=== PATIENT | female | born 2000 | race Caucasian/White ===

== ENCOUNTER 2021-01-11 23:43 | Emergency (ER) | payer BC, SELFPAY ==
--- NOTE | ~2021-01-11 | XR_ITS ---
EXAMINATION: XR ABDOMEN KUB CLINICAL INFORMATION: Constipation COMPARISON: 11/07/2010 TECHNIQUE: AP view of the abdomen. FINDINGS: The bowel gas pattern is nonobstructive. Moderate amount of stool is present in the pelvis. No suspicious calcifications are seen. No acute osseous findings identified. XR/XR KUB IMPRESSION: Moderate volume of stool in the pelvis. Nonobstructive bowel gas pattern.
[2021-01-12 00:10] VITALS: BMI 19.1
[2021-01-12 00:14] VITALS: BP 118/83; PULSE 83; RESP 17; TEMP 37.1; O2SAT 100; BMI 19.1
[2021-01-12 00:27] LABS: Basophils Percent Auto 0.6 % (0-2); Eosinophils Absolute Auto 0.2 X10*3/uL (0.0-0.4); Eosinophils Percent Auto 2.7 % (0-4); Hematocrit 33.4 % (37-47); Hemoglobin 10.8 g/dl (12.0-16.0); Imm Gran Abs Auto 0.01 X10*3/uL (0.00-0.03); Imm Gran Pct Auto 0.1 % (0.0-0.4); Lymphocytes Absolute Auto 2.5 X10*3/uL (1.2-4.9); Lymphocytes Percent Auto 35.4 % (20-40); MANUAL DIFF FLAG NO; Mean Corpuscular HGB Conc 32.3 g/dl (31.0-35.0); Mean Corpuscular Hemoglobin 26.3 pg (27.0-33.0); Mean Corpuscular Volume 81.3 fL (80-98); Mean Platelet Volume 9.7 fL (9.4-12.3); Monocytes Absolute Auto 0.5 X10*3/uL (0.1-1.2); Monocytes Percent Auto 7.4 % (2-11); Neutrophils Absolute Auto 3.8 X10*3/uL (2.0-8.3); Neutrophils Percent Auto 53.8 % (45-73); Platelet Count 378 X10*3/uL (160-400); Red Blood Count 4.11 X10*6/uL (4.20-5.50); Red Cell Distribution Width 14.8 % (11.0-16.0)
[2021-01-12 00:29] LABS: Appearance Urine CLEAR; Color Urine YELLOW; Glucose Urine UA NEG (NEG); Leukocyte Esterase Urine NEG (NEG); Nitrite Urine NEG (NEG); PH 5.5 (5.0-8.0); Specific Gravity - Urine >= 1.030 (1.005-1.025); Urine Blood NEG (NEG); Urine Ketones NEG (NEG); Urine Protein TRACE MG/DL (NEG-TRACE)
[2021-01-12 00:31] LABS: UPreg QC Valid YES; Urine Pregnancy NEGATIVE (NEGATIVE)
[2021-01-12 00:51] LABS: Anion Gap 11 (12-20); Blood Urea Nitrogen 18 mg/dL (9-16); Calcium 9.8 mg/dL (8.4-10.2); Carbon Dioxide 24 mmol/L (22-29); Chloride 108 mmol/L (96-108); Creatinine Clr Calc Pharmacy 88.9; Estimated Glomerular Filt Rate > 60; Glucose Random 93 mg/dL (60-115); Sodium 139 mmol/L (135-145)
--- NOTE | 2021-01-12 07:41 | ED_ITS ---
HPI - Abdominal Pain General Chief Complaint: Abdominal Pain Stated Complaint: Abd pain Source: patient Mode of arrival: ambulatory History of Present Illness HPI narrative: SEE DOWN TIME NOTE Related Data Allergies Allergy/AdvReac Type Severity Reaction Status Date / Time BIRCH TREE Allergy Unknown Uncoded 04/22/20 17:22 Physical Exam Vital Signs: Vital Signs: Last Vital Signs Temp 98.7 F 01/12/21 00:14 Pulse 83 01/12/21 00:14 Resp 17 01/12/21 00:14 BP 118/83 01/12/21 00:14 Pulse Ox 100 01/12/21 00:14 Body Mass Index 19.1 MDM - Abdominal Pain Lab Data Result diagrams: 01/12/21 00:19 01/12/21 00:19 Labs: Lab Results 01/12/21 01/12/21 01/12/21 Range/Units 00:19 00:19 00:19 WBC 7.0 (4.8-10.8) X10*3/uL RBC 4.11 L (4.20-5.50) X10*6/uL Hgb 10.8 L (12.0-16.0) g/dl Hct 33.4 L (37-47) % MCV 81.3 (80-98) fL MCH 26.3 L (27.0-33.0) pg MCHC 32.3 (31.0-35.0) g/dl RDW 14.8 (11.0-16.0) % Plt Count 378 (160-400) X10*3/uL MPV 9.7 (9.4-12.3) fL Immature Gran % (Auto) 0.1 (0.0-0.4) % Neut % (Auto) 53.8 (45-73) % Lymph % (Auto) 35.4 (20-40) % [place] % (Auto) 7.4 (2-11) % Eos % (Auto) 2.7 (0-4) % Baso % (Auto) 0.6 (0-2) % Lymph # (Auto) 2.5 (1.2-4.9) X10*3/uL [place] # (Auto) 0.5 (0.1-1.2) X10*3/uL Eos # (Auto) 0.2 (0.0-0.4) X10*3/uL Baso # (Auto) 0.0 (0.0-0.2) X10*3/uL Abs Immat Gran (auto) 0.01 (0.00-0.03) X10*3/uL Absolute Neuts (auto) 3.8 (2.0-8.3) X10*3/uL Absolute Nucleated RBC 0.000 (0.0-0.012) X10*3/uL Nucleated RBC % (auto) 0.0 (0.0-0.2) /100WBC Sodium 139 (135-145) mmol/L Potassium 4.0 (3.3-5.1) mmol/L Chloride 108 (96-108) mmol/L Carbon Dioxide 24 (22-29) mmol/L Anion Gap 11 L (12-20) BUN 18 H (9-16) mg/dL Creatinine 0.78 (0.5-1.4) mg/dL Estim Creat Clear Calc 88.9 Estimated GFR > 60 Random Glucose 93 (60-115) mg/dL Calcium 9.8 (8.4-10.2) mg/dL Urine Color YELLOW Urine Appearance CLEAR Urine pH 5.5 (5.0-8.0) Ur Specific [place] >= 1.030 H (1.005-1.025) Urine Protein TRACE (NEG-TRACE) MG/DL Urine Glucose (UA) NEG (NEG) MG/DL Urine Ketones NEG (NEG) MG/DL Urine Blood NEG (NEG) Urine Nitrite NEG (NEG) Ur Leukocyte Esterase NEG (NEG) Urine Test (NEGATIVE) 01/12/21 Range/Units 00:19 WBC (4.8-10.8) X10*3/uL RBC (4.20-5.50) X10*6/uL Hgb (12.0-16.0) g/dl Hct (37-47) % MCV (80-98) fL MCH (27.0-33.0) pg MCHC (31.0-35.0) g/dl RDW (11.0-16.0) % Plt Count (160-400) X10*3/uL MPV (9.4-12.3) fL Immature Gran % (Auto) (0.0-0.4) % Neut % (Auto) (45-73) % Lymph % (Auto) (20-40) % [place] % (Auto) (2-11) % Eos % (Auto) (0-4) % Baso % (Auto) (0-2) % Lymph # (Auto) (1.2-4.9) X10*3/uL [place] # (Auto) (0.1-1.2) X10*3/uL Eos # (Auto) (0.0-0.4) X10*3/uL Baso # (Auto) (0.0-0.2) X10*3/uL Abs Immat Gran (auto) (0.00-0.03) X10*3/uL Absolute Neuts (auto) (2.0-8.3) X10*3/uL Absolute Nucleated RBC (0.0-0.012) X10*3/uL Nucleated RBC % (auto) (0.0-0.2) /100WBC Sodium (135-145) mmol/L Potassium (3.3-5.1) mmol/L Chloride (96-108) mmol/L Carbon Dioxide (22-29) mmol/L Anion Gap (12-20) BUN (9-16) mg/dL Creatinine (0.5-1.4) mg/dL Estim Creat Clear Calc Estimated GFR Random Glucose (60-115) mg/dL Calcium (8.4-10.2) mg/dL Urine Color Urine Appearance Urine pH (5.0-8.0) Ur Specific [place] (1.005-1.025) Urine Protein (NEG-TRACE) MG/DL Urine Glucose (UA) (NEG) MG/DL Urine Ketones (NEG) MG/DL Urine Blood (NEG) Urine Nitrite (NEG) Ur Leukocyte Esterase (NEG) Urine Test NEGATIVE (NEGATIVE) Discharge Plan Discharge Clinical Impression: Constipation, Gastritis Patient Disposition: Home, Self-Care Interventions: ED Discharge Assessment Last Done: 01/12/21 06:58 Discharge Date/Time: 01/12/21 02:00 [facility] Past Medical History Medical History (Updated 01/12/21 @ 06:58 by Destiny Moss) No known health problems Social History Social History Advance Directives: No Patient : No
== END 2021-01-12 02:00 | disposition home or self-care (01) ==
PROVIDERS: Emergency Provider Student in an Organized Health Care Education/Training Program; PCP Specialist
DX: K29.70 Gastritis, unspecified, without bleeding (principal); K59.00 Constipation, unspecified
CPT/HCPCS: 36415; 74018; 80048; 81003; 81025; 85025; 99283

== ENCOUNTER 2021-05-11 12:33 | Outpatient (REF) | payer BC, SELFPAY | END 2021-05-11 12:34 | disposition home or self-care (01) | LOC: HO.LAB 12:33 | PROVIDERS: PCP Pediatrics; Visit Provider Internal Medicine | DX: Z20.822 Contact with and (suspected) exposure to COVID-19 (principal) | CPT/HCPCS: C9803; U0003; U0005 ==

== ENCOUNTER 2021-05-17 11:17 | Outpatient (REF) | payer BC, SELFPAY | END 2021-05-17 11:18 | disposition home or self-care (01) | LOC: HO.LAB 11:17 | PROVIDERS: PCP Pediatrics; Visit Provider Internal Medicine | DX: Z20.822 Contact with and (suspected) exposure to COVID-19 (principal) | CPT/HCPCS: C9803; U0003; U0005 ==

== ENCOUNTER 2022-03-24 02:30 | Emergency (ER) | payer BC, SELFPAY ==
[2022-03-24] VITALS (7 sets, daily range): BP systolic 93–112; BP diastolic 47–67; PULSE 76–148; RESP 16–20; TEMP 36.7; O2SAT 99–100; BMI 18.8
--- NOTE | 2022-03-24 02:53 | ED.GENADULT ---
HPI - General Adult General Chief complaint: General Medical Stated complaint: at home Time Seen by Provider: 03/24/22 02:53 Source: patient Mode of arrival: ambulatory Limitations: no limitations History of Present Illness HPI narrative: Patient primi 6 weeks status post MTP [facility] 16:00 comes here because she is bleeding and passed about lemon size 3 clots. Feels weak and dizzy Related Data Allergies Allergy/AdvReac Type Severity Reaction Status Date / Time BIRCH TREE Allergy Unknown Uncoded 04/22/20 17:22 Review of Systems Review of Systems: Yes all other systems are reviewed and are negative [facility] Past Medical History Medical History No known health problems Social History Social History Advance Directives: No Physical Exam ED Vital Signs: Vital Signs - 24 hr 03/24/22 02:34 03/24/22 03:21 03/24/22 03:24 Temperature 98.0 F Pulse Rate 99 85 121 H Respiratory Rate 16 Blood Pressure 100/47 L 100/60 93/59 L Pulse Oximetry 99 Oxygen Delivery Method Room Air 03/24/22 03:26 Temperature Pulse Rate 148 H Respiratory Rate Blood Pressure 112/67 Pulse Oximetry Oxygen Delivery Method BMI result Body Mass Index 18.8 Appearance: Alert. Oriented X3. No acute distress. ENT: Pharynx normal. Oral Mucosa moist Neck: Normal inspection. Neck supple. CVS: Normal heart rate and rhythm. Pulses normal. Lungs: Clear to auscultation bilaterally Abd; soft mild suprapubic tenderness no mass palpable Skin: Skin warm and dry. Normal skin color. Normal skin turgor. Neuro: Oriented X 3. Medical Decision Making MDM Narrative Medical decision making narrative: Patient 6 weeks status post MTP using misoprostol comes here for bleeding which is expected there is no indication for ultrasound at this time as the pill was given dose today and bleeding supposed to continue for 2-3 days patient H and H is stable with normal orthostatics patient advised to follow with polymer materials consultant, patient been feeling very dizzy on standing with orthostatics positive will give 1 L of saline bolus Lab Data Lab results reviewed: Yes I reviewed the patient's lab results. Result diagrams: 03/24/22 03:04 03/24/22 03:04 Labs: Lab Results 03/24/22 03/24/22 Range/Units 03:04 03:04 WBC 9.7 (4.8-10.8) X10*3/uL RBC 3.93 L (4.20-5.50) X10*6/uL Hgb 9.9 L (12.0-16.0) g/dl Hct 30.7 L (37.0-47.0) % MCV 78.1 L (80.0-98.0) fL MCH 25.2 L (27.0-33.0) pg MCHC 32.2 (31.0-35.0) g/dl RDW 15.4 (11.0-16.0) % Plt Count 322 (160-400) X10*3/uL MPV 10.5 (9.4-12.3) fL Immature Gran % (Auto) 0.4 (0.0-0.4) % Neut % (Auto) 73.1 H (45-73) % Lymph % (Auto) 18.6 L (20-40) % [place] % (Auto) 6.3 (2-11) % Eos % (Auto) 1.1 (0-4) % Baso % (Auto) 0.5 (0-2) % Lymph # (Auto) 1.8 (1.2-4.9) X10*3/uL [place] # (Auto) 0.6 (0.1-1.2) X10*3/uL Eos # (Auto) 0.1 (0.0-0.4) X10*3/uL Baso # (Auto) 0.1 (0.0-0.2) X10*3/uL Abs Immat Gran (auto) 0.04 H (0.00-0.03) X10*3/uL Absolute Neuts (auto) 7.1 (2.0-8.3) x10*3/uL Absolute Nucleated RBC 0.000 (0.0-0.012) X10*3/uL Nucleated RBC % (auto) 0.0 (0.0-0.2) /100WBC Sodium 137 (135-145) mmol/L Potassium 4.2 (3.3-5.1) mmol/L Chloride 105 (96-108) mmol/L Carbon Dioxide 20 L (22-29) mmol/L Anion Gap 16 (12-20) BUN 19 H (9-16) mg/dL Creatinine 0.87 (0.5-1.4) mg/dL Estim Creat Clear Calc 80.5 Estimated GFR > 60 Random Glucose 108 (60-115) mg/dL Calcium 9.1 D (8.4-10.2) mg/dL Total Bilirubin 0.3 (0.0-1.0) mg/dL AST 14 (5-31) U/L ALT 6 (0-31) U/L Alkaline Phosphatase 42 (39-117) U/L Total Protein 6.8 (6.5-8.0) g/dL Albumin 3.9 (3.5-5.0) g/dL Discharge Plan Discharge Clinical Impression: Patient Disposition: Home, Self-Care Instructions: Miscarriage (ED)
[2022-03-24 03:08] LABS: MANUAL DIFF FLAG NO
[2022-03-24 03:12] LABS: Basophils Absolute Auto 0.1 X10*3/uL (0.0-0.2); Basophils Percent Auto 0.5 % (0-2); Eosinophils Absolute Auto 0.1 X10*3/uL (0.0-0.4); Eosinophils Percent Auto 1.1 % (0-4); Hematocrit 30.7 % (37.0-47.0); Hemoglobin 9.9 g/dl (12.0-16.0); Imm Gran Abs Auto 0.04 X10*3/uL (0.00-0.03); Imm Gran Pct Auto 0.4 % (0.0-0.4); Lymphocytes Absolute Auto 1.8 X10*3/uL (1.2-4.9); Lymphocytes Percent Auto 18.6 % (20-40); Mean Corpuscular HGB Conc 32.2 g/dl (31.0-35.0); Mean Corpuscular Hemoglobin 25.2 pg (27.0-33.0); Mean Corpuscular Volume 78.1 fL (80.0-98.0); Mean Platelet Volume 10.5 fL (9.4-12.3); Monocytes Absolute Auto 0.6 X10*3/uL (0.1-1.2); Monocytes Percent Auto 6.3 % (2-11); Neutrophils Absolute Auto 7.1 x10*3/uL (2.0-8.3); Neutrophils Percent Auto 73.1 % (45-73); Platelet Count 322 X10*3/uL (160-400); Red Blood Count 3.93 X10*6/uL (4.20-5.50); Red Cell Distribution Width 15.4 % (11.0-16.0); White Blood Count 9.7 X10*3/uL (4.8-10.8)
[2022-03-24 03:25] LABS: Alanine Aminotransferase 6 U/L (0-31); Albumin Level 3.9 g/dL (3.5-5.0); Alkaline Phosphatase 42 U/L (39-117); Anion Gap 16 (12-20); Aspartate Amino Transferase 14 U/L (5-31); Bilirubin Total 0.3 mg/dL (0.0-1.0); Blood Urea Nitrogen 19 mg/dL (9-16); Calcium 9.1 mg/dL (8.4-10.2); Carbon Dioxide 20 mmol/L (22-29); Chloride 105 mmol/L (96-108); Creatinine Clr Calc Pharmacy 80.5; Estimated Glomerular Filt Rate > 60; Glucose Random 108 mg/dL (60-115); Potassium 4.2 mmol/L (3.3-5.1); Sodium 137 mmol/L (135-145); Total Protein 6.8 g/dL (6.5-8.0)
[2022-03-24] MEDS: 0.9 % Sodium Chloride 1,000 ML 999 ML IV (03:40)
--- NOTE | 2022-03-24 05:42 | ED_ITS ---
HPI - General Adult General Chief complaint: General Medical Stated complaint: at home Time Seen by Provider: 03/24/22 02:53 Source: patient Mode of arrival: ambulatory Limitations: no limitations Related Data Allergies Allergy/AdvReac Type Severity Reaction Status Date / Time BIRCH TREE Allergy Unknown Uncoded 04/22/20 17:22 [facility] Past Medical History Medical History No known health problems Social History Social History Advance Directives: No Physical Exam ED Vital Signs: Vital Signs - 24 hr 03/24/22 02:34 03/24/22 03:21 03/24/22 03:24 Temperature 98.0 F Pulse Rate 99 85 121 H Respiratory Rate 16 Blood Pressure 100/47 L 100/60 93/59 L Pulse Oximetry 99 Oxygen Delivery Method Room Air 03/24/22 03:26 03/24/22 04:20 03/24/22 05:33 Temperature Pulse Rate 148 H 76 82 Respiratory Rate 20 Blood Pressure 112/67 98/59 L 101/57 L Pulse Oximetry 100 Oxygen Delivery Method Room Air 03/24/22 05:34 03/24/22 05:34 Temperature Pulse Rate 90 107 H Respiratory Rate Blood Pressure 105/58 L 112/62 Pulse Oximetry Oxygen Delivery Method BMI result Body Mass Index 18.8 Medical Decision Making Lab Data Result diagrams: 03/24/22 03:04 03/24/22 03:04 Labs: Lab Results 03/24/22 03/24/22 Range/Units 03:04 03:04 WBC 9.7 (4.8-10.8) X10*3/uL RBC 3.93 L (4.20-5.50) X10*6/uL Hgb 9.9 L (12.0-16.0) g/dl Hct 30.7 L (37.0-47.0) % MCV 78.1 L (80.0-98.0) fL MCH 25.2 L (27.0-33.0) pg MCHC 32.2 (31.0-35.0) g/dl RDW 15.4 (11.0-16.0) % Plt Count 322 (160-400) X10*3/uL MPV 10.5 (9.4-12.3) fL Immature Gran % (Auto) 0.4 (0.0-0.4) % Neut % (Auto) 73.1 H (45-73) % Lymph % (Auto) 18.6 L (20-40) % [place] % (Auto) 6.3 (2-11) % Eos % (Auto) 1.1 (0-4) % Baso % (Auto) 0.5 (0-2) % Lymph # (Auto) 1.8 (1.2-4.9) X10*3/uL [place] # (Auto) 0.6 (0.1-1.2) X10*3/uL Eos # (Auto) 0.1 (0.0-0.4) X10*3/uL Baso # (Auto) 0.1 (0.0-0.2) X10*3/uL Abs Immat Gran (auto) 0.04 H (0.00-0.03) X10*3/uL Absolute Neuts (auto) 7.1 (2.0-8.3) x10*3/uL Absolute Nucleated RBC 0.000 (0.0-0.012) X10*3/uL Nucleated RBC % (auto) 0.0 (0.0-0.2) /100WBC Sodium 137 (135-145) mmol/L Potassium 4.2 (3.3-5.1) mmol/L Chloride 105 (96-108) mmol/L Carbon Dioxide 20 L (22-29) mmol/L Anion Gap 16 (12-20) BUN 19 H (9-16) mg/dL Creatinine 0.87 (0.5-1.4) mg/dL Estim Creat Clear Calc 80.5 Estimated GFR > 60 Random Glucose 108 (60-115) mg/dL Calcium 9.1 D (8.4-10.2) mg/dL Total Bilirubin 0.3 (0.0-1.0) mg/dL AST 14 (5-31) U/L ALT 6 (0-31) U/L Alkaline Phosphatase 42 (39-117) U/L Total Protein 6.8 (6.5-8.0) g/dL Albumin 3.9 (3.5-5.0) g/dL Discharge Plan Discharge Clinical Impression: Patient Disposition: Home, Self-Care Instructions: Miscarriage (ED) Additional Instructions: Drink plenty of fluids it is expected you will continue to bleed for next 2 3 days 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
== END 2022-03-24 06:00 | disposition home or self-care (01) ==
PROVIDERS: Emergency Provider Internal Medicine; PCP Specialist
DX: O03.4 Incomplete spontaneous abortion without complication (principal); R42 Dizziness and giddiness; Z79.899 Other long term (current) drug therapy
CPT/HCPCS: 36415; 80053; 85025; 99283

== ENCOUNTER 2022-05-16 13:05 | Day surgery (SDC) | payer BC, SELFPAY ==
[2022-05-16] VITALS (8 sets, daily range): BP systolic 97–148; BP diastolic 56–98; PULSE 69–94; RESP 14–19; TEMP 36.5–36.9; O2SAT 100; BMI 18.8
--- NOTE | ~2022-05-16 | US_ITS ---
EXAMINATION:US OB transvaginal CLINICAL INFORMATION: Reason for Exam vaginal bleeding 2 months post COMPARISON: No priors available. LMP: Not reported. FINDINGS: UTERUS: The uterus is anteverted. Size: 5.6 x 3.5 x 4.1 cm. Uterine mass: There is no uterine mass. Cervix: Grossly unremarkable. Endometrium: Thickened heterogeneous endometrium, hypervascular, measuring up to 1.1 cm concerning for possible endometrial pathology or retained products. ADNEXA: Normal Right ovary: Normal in size. Left ovary: Normal in size. Doppler exam: Normal Doppler flow identified in both ovaries. FREE FLUID: Trace amount of free fluid. OTHER FINDINGS: None US/US OB transvaginal IMPRESSION: Abnormally thickened heterogeneous hypervascular endometrium measuring up to 1.1 cm, this is concerning for possible endometrial or subendometrial lesion versus retained products. Attention to follow-up tissue sampling and/or advanced imaging such as contrast-enhanced pelvic MRI would be recommended, if not performed follow-up ultrasound in 6 weeks is advised.
--- NOTE | ~2022-05-16 | US_ITS ---
Indication: Incomplete EXAMINATION: Pelvic ultrasound. Transvaginal exam and transabdominal. Findings; 2 sets of images are submitted. One set is dated 05/16/2022 at 3:48 PM on another is dated 05/16/2022 at 4:43 PM. The earlier images submitted demonstrate uterine structure to measure 5.6 x 3.5 x 4.1 cm. The endometrial canal is widened by structure measuring approximately 1 x 1.9 cm. This may be a polyp versus other etiology. It is vascular. The right ovary is measuring 2.6 x 2.1 x 2.2 cm. Volume 9 mL. Follicles are noted. The left ovary is measuring 2.6 x 1.9 x 3.4 cm.. Volume 9 mL. Follicles are noted Bilateral ovarian vascularity within normal limits The second set of images submitted demonstrates a surgical instrument in the region of the endometrial canal. The last image submitted demonstrates the canal measuring approximately 8 mm near the fundus. Ovarian vascularity is within normal limits. US/US OB limited IMPRESSION: Findings are described above. 2 series of images are submitted. One demonstrating a filling defect involving the endometrial canal and another demonstrating a surgical instrument on several images in the region of the endometrial canal. Please correlate with the surgeon's report.
--- NOTE | ~2022-05-16 | XR_ITS ---
EXAMINATION: XR CHEST CLINICAL INFORMATION: Syncope COMPARISON: None TECHNIQUE: 2 views of the chest were obtained. FINDINGS: No focal consolidation. Slight elevation the right hemidiaphragm, nonspecific. No pneumothorax. Trachea is midline. Cardiac mediastinal silhouette is not enlarged. No large pleural effusion. Osseous structures are intact. Soft tissues are unremarkable. XR/XR chest 2V IMPRESSION: No acute cardiopulmonary process.
--- NOTE | 2022-05-16 13:59 | ED.GENADULT ---
HPI - General Adult General Chief complaint: Syncope Stated complaint: NEAR SYNCOPE Time Seen by Provider: 05/16/22 13:59 Source: patient Mode of arrival: ambulatory Limitations: no limitations History of Present Illness HPI narrative: Patient is a 21 year old assigned female with a history of an in March of 2022 presenting to the emergency department today after almost passing out at work. Patient states that today at work, she almost passed out. Patient states that over the last few days she has noticed much more vagina bleeding than usual. Patient states that she had an in March of this year and had some minimal bleeding after that but it had largely stopped then restarted over the last few days. Patient denies any dizziness, lightheadedness, abdominal pain, nausea, vomiting, fever, chills, blurry vision, double vision, loss of vision, chest pain, difficulty breathing, shortness of breath, back pain, night sweats, pain with urination, increased urinary frequency, increased urinary urgency, syncope or a near syncopal episode, recent trauma or falls, bowel incontinence, bladder incontinence, bowel retention, bladder retention, or any other complaints at this time. Onset (ago): day(s) Severity: mild Severity scale (1-10): 4 Relieving factors: none Exacerbating factors: none Associated symptoms: denies other symptoms Treatments prior to arrival: none Related Data Allergies Allergy/AdvReac Type Severity Reaction Status Date / Time BIRCH TREE Allergy Unknown Uncoded 04/22/20 17:22 Review of Systems Constitutional: Constitutional: Reports no additional constitutional complaints, Denies chills, Denies fever(s) and Denies night sweats Eyes: Eyes: Reports no additional eye complaints, Denies blurry vision, Denies change in vision, Denies diplopia, Denies eye discharge, Denies loss of vision and Denies eye pain ENT: Reports dizziness Cardiovascular: Cardiovascular: Reports no additional cardiovascular complaints, Denies chest pain, Denies lightheadedness, Denies Loss of Consciousness and Denies dyspnea Respiratory: Respiratory: Reports no additional respiratory complaints and Denies dyspnea Gastrointestinal: Gastrointestinal: Reports no additional gastrointestinal complaints, Denies abdominal pain, Denies melena, Denies hematochezia, Denies change in bowel habits and Denies change in stool character Genitourinary: Genitourinary: Denies urinary frequency, Denies dysuria, Denies urinary incontinence, Denies urinary hesitancy and Denies urinary urgency Comments: vaginal bleeding Musculoskeletal: Musculoskeletal: Reports no additional musculoskeletal complaints, Denies numbness and Denies tingling Neurologic: Reports dizziness, Denies loss of vision, Denies numbness and Denies tingling Psychiatric: Psychiatric: Reports no additional psychiatric complaints Endocrine: Endocrine: Reports no additional endocrine complaints Hematologic/Lymphatic: Hematologic/Lymphatic: Reports no additional hematologic/lymphatic complaints Allergic/Immunologic: Allergic/Immunologic: Reports no additional allergic/immunologic complaints [facility] Past Medical History Attestation statement: The following information was validated with the patient. Source: old records reviewed Medical History No known health problems Social History Social History Advance Directives: No Advance Directives Information Provided: No Physical Exam ED Vital Signs: Vital Signs - 24 hr 05/16/22 13:17 05/16/22 13:26 Temperature 98.4 F 98.3 F Pulse Rate 81 79 Respiratory Rate 14 14 Blood Pressure 97/59 L 105/60 Pulse Oximetry 100 100 Oxygen Delivery Method Room Air Room Air BMI result Body Mass Index 18.8 Const General: cooperative, no acute distress, alert and awake Nutritional Appearance: well nourished Orientation/consciousness: patient oriented x3 Limitations: no limitations HENMT Head: Yes normal to inspection and Yes atraumatic Ears: hearing grossly normal bilaterally and external ears normal General nose exam: Normal external nose present, no nasal discharge noted and no epistaxis Face and sinus: Yes normal facial exam, No abrasion and No laceration Mouth: Normal oral and palatal mucosa present, no drooling and no muffled voice Eyes General: appearance normal, both eyes and all related structures Periorbital: periorbital findings normal Eyelids: Yes eyelids normal Conjunctivae: conjunctivae normal Pupils: Equal, round and reactive pupils present EOM: EOMs intact bilaterally Neck Neck: Yes normal visual inspection, Yes full ROM and Yes no lymphadenopathy Chest Chest palpation & inspection: normal inspection of the chest Resp Effort & Inspection: normal respiratory effort and able to speak in complete sentences Auscultation: clear to auscultation bilaterally Cardio Rate: regular rate Rhythm: regular rhythm GI Inspection: Yes normal to inspection Other: deferred by me - performed by Dr. Mayo Neuro General: patient oriented x3 and moves all extremities Cranial nerves: Yes Equal, round and reactive pupils present Cognition (Neuro): normal cognition Motor exam (neuro): 5/5 motor strength present throughout Sensory Exam: Normal double simultaneous stimulation for sensation Coordination: [id number] test normal Extrem General: Yes normal to inspection, Yes full ROM and Yes capillary refill normal Psych Appearance: grossly normal Mental Status: mental status grossly normal Affect: normal affect Attitude: cooperative Thought process: Normal thought process present Thought content: Normal thought content present Insight: Good insight present (Psych) Medical Decision Making MDM Narrative Medical decision making narrative: Patient is a 21 year old assigned female with presenting to the emergency department today with vaginal bleeding. Patient's physical exam was unremarkable. Patient's blood work showed a profound anemia of 5.4 with a HCT of 18.1. I initiated transufion protocol. Patient's EKG was unremarkable. Patient's transvaginal US is pending. Dr. Mayo, the OB environmental marketing representative, came and examined the patient and determined the patient should go to the OR for retained products of conception. I explained my physical exam findings as well as all test results to the patient and the patient's mother. I answered all questions asked by the patient and the patient's mother. Patient and the patient's mother verbalized agreement and understanding with this treatment plan and transfer to the OR. Medical Records Medical records reviewed: Yes I reviewed the patient's medical records. Lab Data Lab results reviewed: Yes I reviewed the patient's lab results. Result diagrams: 05/16/22 14:51 05/16/22 14:51 Labs: Lab Results 05/16/22 05/16/22 05/16/22 Range/Units 14:51 14:51 14:51 WBC 8.0 (4.8-10.8) X10*3/uL RBC 2.57 L D (4.20-5.50) X10*6/uL Hgb 5.4 L* D (12.0-16.0) g/dl Hct 18.1 L* D (37.0-47.0) % MCV 70.4 L (80.0-98.0) fL MCH 21.0 L (27.0-33.0) pg MCHC 29.8 L (31.0-35.0) g/dl RDW 17.8 H (11.0-16.0) % Plt Count 387 (160-400) X10*3/uL MPV 11.0 (9.4-12.3) fL Immature Gran % (Auto) 0.4 (0.0-0.4) % Neut % (Auto) 83.5 H (45-73) % Lymph % (Auto) 11.4 L (20-40) % [place] % (Auto) 3.6 (2-11) % Eos % (Auto) 0.6 (0-4) % Baso % (Auto) 0.5 (0-2) % Lymph # (Auto) 0.9 L (1.2-4.9) X10*3/uL [place] # (Auto) 0.3 (0.1-1.2) X10*3/uL Eos # (Auto) 0.1 (0.0-0.4) X10*3/uL Baso # (Auto) 0.0 (0.0-0.2) X10*3/uL Abs Immat Gran (auto) 0.03 (0.00-0.03) X10*3/uL Absolute Neuts (auto) 6.6 (2.0-8.3) x10*3/uL Absolute Nucleated RBC 0.000 (0.0-0.012) X10*3/uL Nucleated RBC % (auto) 0.0 (0.0-0.2) /100WBC Sodium 139 (135-145) mmol/L Potassium 4.4 (3.3-5.1) mmol/L Chloride 108 (96-108) mmol/L Carbon Dioxide 22 (22-29) mmol/L Anion Gap 13 (12-20) BUN 13 (9-16) mg/dL Creatinine 0.68 (0.5-1.4) mg/dL Estim Creat Clear Calc 103.0 Estimated GFR > 60 Random Glucose 92 (60-115) mg/dL Calcium 8.8 (8.4-10.2) mg/dL Magnesium 1.9 (1.6-2.6) mg/dL Total Bilirubin 0.2 (0.0-1.0) mg/dL AST 15 (5-31) U/L ALT 6 (0-31) U/L Alkaline Phosphatase 42 (39-117) U/L Troponin I High Sens < 3.5 (<3.5-17.0) ng/L Total Protein 6.7 (6.5-8.0) g/dL Albumin 4.0 (3.5-5.0) g/dL Beta HCG, Quant 6 mIU/mL Blood Type Antibody Screen Crossmatch 05/16/22 Range/Units 15:36 WBC (4.8-10.8) X10*3/uL RBC (4.20-5.50) X10*6/uL Hgb (12.0-16.0) g/dl Hct (37.0-47.0) % MCV (80.0-98.0) fL MCH (27.0-33.0) pg MCHC (31.0-35.0) g/dl RDW (11.0-16.0) % Plt Count (160-400) X10*3/uL MPV (9.4-12.3) fL Immature Gran % (Auto) (0.0-0.4) % Neut % (Auto) (45-73) % Lymph % (Auto) (20-40) % [place] % (Auto) (2-11) % Eos % (Auto) (0-4) % Baso % (Auto) (0-2) % Lymph # (Auto) (1.2-4.9) X10*3/uL [place] # (Auto) (0.1-1.2) X10*3/uL Eos # (Auto) (0.0-0.4) X10*3/uL Baso # (Auto) (0.0-0.2) X10*3/uL Abs Immat Gran (auto) (0.00-0.03) X10*3/uL Absolute Neuts (auto) (2.0-8.3) x10*3/uL Absolute Nucleated RBC (0.0-0.012) X10*3/uL Nucleated RBC % (auto) (0.0-0.2) /100WBC Sodium (135-145) mmol/L Potassium (3.3-5.1) mmol/L Chloride (96-108) mmol/L Carbon Dioxide (22-29) mmol/L Anion Gap (12-20) BUN (9-16) mg/dL Creatinine (0.5-1.4) mg/dL Estim Creat Clear Calc Estimated GFR Random Glucose (60-115) mg/dL Calcium (8.4-10.2) mg/dL Magnesium (1.6-2.6) mg/dL Total Bilirubin (0.0-1.0) mg/dL AST (5-31) U/L ALT (0-31) U/L Alkaline Phosphatase (39-117) U/L Troponin I High Sens (<3.5-17.0) ng/L Total Protein (6.5-8.0) g/dL Albumin (3.5-5.0) g/dL Beta HCG, Quant mIU/mL Blood Type A Positive Antibody Screen NEGATIVE Crossmatch See Detail Critical Care Time Critical Care Time Critical Care Time: Yes Total Critical Care Time: 30 Attestation: I spent 30 minutes of Critical Care Time with this patient. This does not include time spent on separately reported billable procedures. Discharge Plan Discharge Clinical Impression: Retained products of conception following , Anemia Patient Disposition: Xfer Other Transfer Details: To OR Print Language: Thai
--- NOTE | 2022-05-16 14:00 | ECG_ITS ---
Test Reason : syncope Blood Pressure : / mmHG Vent. Rate : 079 BPM Atrial Rate : 079 BPM P-R Int : 154 ms QRS Dur : 086 ms QT Int : 394 ms P-R-T Axes : 062 077 066 degrees QTc Int : 451 ms Normal sinus rhythm Normal ECG No previous ECGs available Referred By: Monserrat Abraham Electronically Signed By:ANDRÉS LITTLE MD
[2022-05-16] MEDS: 0.9 % Sodium Chloride 1,000 ML 999 ML IV (14:49)
[2022-05-16 14:55] LABS: MANUAL DIFF FLAG NO
[2022-05-16 14:59] LABS: Basophils Percent Auto 0.5 % (0-2); Eosinophils Absolute Auto 0.1 X10*3/uL (0.0-0.4); Eosinophils Percent Auto 0.6 % (0-4); Imm Gran Abs Auto 0.03 X10*3/uL (0.00-0.03); Imm Gran Pct Auto 0.4 % (0.0-0.4); Lymphocytes Absolute Auto 0.9 X10*3/uL (1.2-4.9); Lymphocytes Percent Auto 11.4 % (20-40); Mean Corpuscular HGB Conc 29.8 g/dl (31.0-35.0); Mean Corpuscular Volume 70.4 fL (80.0-98.0); Monocytes Absolute Auto 0.3 X10*3/uL (0.1-1.2); Monocytes Percent Auto 3.6 % (2-11); Neutrophils Absolute Auto 6.6 x10*3/uL (2.0-8.3); Neutrophils Percent Auto 83.5 % (45-73); Platelet Count 387 X10*3/uL (160-400); Red Blood Count 2.57 X10*6/uL (4.20-5.50); Red Cell Distribution Width 17.8 % (11.0-16.0)
[2022-05-16 15:03] LABS: Hematocrit 18.1 % (37.0-47.0); Hemoglobin 5.4 g/dl (12.0-16.0)
[2022-05-16 15:18] LABS: Troponin-I High Sensitivity < 3.5 ng/L (<3.5-17.0)
[2022-05-16 15:19] LABS: Alanine Aminotransferase 6 U/L (0-31); Alkaline Phosphatase 42 U/L (39-117); Anion Gap 13 (12-20); Aspartate Amino Transferase 15 U/L (5-31); Bilirubin Total 0.2 mg/dL (0.0-1.0); Blood Urea Nitrogen 13 mg/dL (9-16); Calcium 8.8 mg/dL (8.4-10.2); Carbon Dioxide 22 mmol/L (22-29); Chloride 108 mmol/L (96-108); Estimated Glomerular Filt Rate > 60; Glucose Random 92 mg/dL (60-115); Magnesium 1.9 mg/dL (1.6-2.6); Potassium 4.4 mmol/L (3.3-5.1); Sodium 139 mmol/L (135-145); Total Protein 6.7 g/dL (6.5-8.0)
[2022-05-16 15:25] LABS: HCG Quantitative 6 mIU/mL
--- NOTE | 2022-05-16 16:02 | PM.GYNCN ---
INFORMATION ASSOC - CN: HPI Data of Consult Consult date: 05/16/22 Primary Care Provider: None Physician Consult Narrative Narrative: I was consulted on Je Harris is a 21 year old female with a history of medical in [facility] presenting to [facility] emergency department today after almost passing out at work. The patient has been having heavy vaginal bleeding over the last 2 months , it started right within hours of medical , this was followed by a period of light vaginal bleeding for few days, the patient had [facility] where [facility] and was told everything was normal , since then the patient been having daily heavy vaginal bleeding associated with passage of blood clots and pelvic cramping, no fever or chills, no other complaints. In the emergency room H&H was 5.4/18.1, hCG 6. 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 - Review of Systems Review of Systems ROS Unobtainable: All systems reviewed & are unremarkable except as noted in HPI and below Cardiovascular: Denies Palpatations, Loss of consciousness or Chest pain Respiratory: Denies Cough, Wheezing or Shortness of breath Musculoskeletal: Denies Low back pain Gastrointestinal: Denies Heartburn, Constipation, Diarrhea, Nausea or Vomiting Genitourinary: Denies Pain with urination, Burning with urination or Urinary frequency Neurological: Denies Migranes Psychological: Denies Depression OB PMFSH Past Medical History Medical History No known health problems Social History Social History Advance Directives: No Advance Directives Information Provided: No Meds Allergies Allergy/AdvReac Type Severity Reaction Status Date / Time BIRCH TREE Allergy Unknown Uncoded 04/22/20 17:22 INFORMATION ASSOC Physical Exam Vitals Vital signs: Temp Pulse Resp BP Pulse Ox O2 Del Method 98.3 F 79 14 105/60 100 05/16/22 13:26 05/16/22 13:26 05/16/22 13:26 05/16/22 13:26 05/16/22 13:26 05/16/22 13:26 BMI result Body Mass Index 18.8 Constitutional General Appearance: Healthy appearing, Well-nourished and Well-developed Psychiatric Mood and Affect: active and alert, normal mood and normal affect Skin Appearance: No rashes and No lesions Lungs Respiratory Effort: No intercostal retractions Auscultation: Clear to auscultation Cardiovascular Auscultation: RRR Abdomen Auscultation/Inspection/Palpation: Normal bowel sounds, Soft, Non-distended and No tenderness Female Genitalia (Pelvic) Exam: Deferred Bladder/Urethra: Normal meatus Vulva: No lesions Vagina: Nontender Cervix: Grossly normal Uterus: Normal size Adnexa/Parametria: Adnexal Tenderness: None, Adnexal Mass: None, Parametrial Tenderness: None and Parametrial Mass: None Additional Comments: Large blood clots per vagina an active vaginal bleeding INFORMATION ASSOC - Results Labs CBC & Chem 7: 05/16/22 14:51 05/16/22 14:51 Labs: Short CBC 05/16/22 Range/Units 14:51 WBC 8.0 (4.8-10.8) X10*3/uL Hgb 5.4 L* D (12.0-16.0) g/dl Hct 18.1 L* D (37.0-47.0) % Plt Count 387 (160-400) X10*3/uL BMP 05/16/22 14:51 Sodium 139 Potassium 4.4 Chloride 108 Carbon Dioxide 22 BUN 13 Creatinine 0.68 Calcium 8.8 Liver Function 05/16/22 Range/Units 14:51 Total Bilirubin 0.2 (0.0-1.0) mg/dL AST 15 (5-31) U/L ALT 6 (0-31) U/L Alkaline Phosphatase 42 (39-117) U/L Albumin 4.0 (3.5-5.0) g/dL Imaging US - abdomen: Radiologist's impression: ITS Impressions Chest X-Ray 05/16/22 14:27 IMPRESSION: No acute cardiopulmonary process. Transvaginal US 05/16/22 16:00 IMPRESSION: Abnormally thickened heterogeneous hypervascular endometrium measuring up to 1.1 cm, this is concerning for possible endometrial or subendometrial lesion versus retained products. Attention to follow-up tissue sampling and/or advanced imaging such as contrast-enhanced pelvic MRI would be recommended, if not performed follow-up ultrasound in 6 weeks is advised. Assessment and Plan (1) Retained products of conception following : Status: Acute (2) Anemia: Status: Acute Type and screen sent , will transfuse with 2 units of packed RBCs and start the patient on iron sulfate 325 mg p.o. t.i.d. postop Plan GC and chlamydia, BV panel taken. Discussed with the patient the result of her H&H, hCG and thickened endometrium by ultrasound suspicious of products of conception, in addition to her clinical present a nolen all pointing towards retained products of conception , the options of the treatment discussed with the patient included medical treatment and suction D&C, all pros, cons, risks and benefits were discussed with the patient and the patient the decided to go ahead with Suction D&C. so a more detailed discussion about the procedure was carried on with the patient including the technique, risks including but not limited to : bleeding, infection, uterine perforation, injury to blood vessels, bowels, ureters, bladder, possible need for blood transfusion with all its risks ( HIV, Hep b or C, anaphylaxis reactions), possible need for laparoscopy, laparotomy, or hysterectomy, possible , thromboembolic events, possibility of a negative impact on future fertility because of scar tissue development inside the uterus; alternatives of this option were discussed with the patient including but not limited to, medical termination of or doing nothing. The patient decided to go ahead with Suction D&C and signed the consent. All questions answered, the patient verbalized understanding and agreed with the plan. Doxycycline 200 mg p.o. preop given to the patient. The patient received Versed prior to p.o. doxycycline, 200 mg IV given preop instead. Ultrasound notified. Type and screen sent. Instructions given the patient to schedule a 2 week postoperative appointment. This note was generated with a voice recognition program. Some errors may have been overlooked during the review of this note. Sometimes these errors may affect the content or meaning of a given sentence.
--- NOTE | 2022-05-16 16:37 | P.CONAN_ITS ---
HPI - Anesthesia Eval Consult details Narrative: 21F w/ acute blood loss anemia. VSS. Hb 5.4. Plan to txf 2U prbc PMFSH Active Problems Active Problems: All Active Problems (Updated 05/16/22 @ 16:17 by William Mayo MD) Anemia (Acute) Retained products of conception following (Acute) Past Medical History Medical History No known health problems Family History Family history of problems with anesthesia: No Surgical History History of Problems with Anesthesia: No Social History Social History Advance Directives: No Advance Directives Information Provided: No Meds Allergies Allergy/AdvReac Type Severity Reaction Status Date / Time BIRCH TREE Allergy Unknown Uncoded 04/22/20 17:22 Exam Exam Date and Time: May 16, 2022 1637 Height,Weight and Vital Signs: Height 5 ft 4 in Weight 110 lb Last Vital Signs Temp 98.3 F 05/16/22 13:26 Pulse 79 05/16/22 13:26 Resp 14 05/16/22 13:26 BP 105/60 05/16/22 13:26 Pulse Ox 100 05/16/22 13:26 O2 Del Method 05/16/22 13:26 Pertinent Lab Results Pertinent Lab Results: Laboratory Tests 05/16/22 05/16/22 05/16/22 14:51 14:51 14:51 WBC 8.0 RBC 2.57 L D Hgb 5.4 L* D Hct 18.1 L* D MCV 70.4 L MCH 21.0 L MCHC 29.8 L RDW 17.8 H Plt Count 387 MPV 11.0 Immature Gran % (Auto) 0.4 Neut % (Auto) 83.5 H Lymph % (Auto) 11.4 L Candler % (Auto) 3.6 Eos % (Auto) 0.6 Baso % (Auto) 0.5 Lymph # (Auto) 0.9 L Candler # (Auto) 0.3 Eos # (Auto) 0.1 Baso # (Auto) 0.0 Abs Immat Gran (auto) 0.03 Absolute Neuts (auto) 6.6 Absolute Nucleated RBC 0.000 Nucleated RBC % (auto) 0.0 Sodium 139 Potassium 4.4 Chloride 108 Carbon Dioxide 22 Anion Gap 13 BUN 13 Creatinine 0.68 Estim Creat Clear Calc 103.0 Estimated GFR > 60 Random Glucose 92 Calcium 8.8 Magnesium 1.9 Total Bilirubin 0.2 AST 15 ALT 6 Alkaline Phosphatase 42 Troponin I High Sens < 3.5 Total Protein 6.7 Albumin 4.0 Beta HCG, Quant 6 Blood Type Antibody Screen Crossmatch 05/16/22 15:36 WBC RBC Hgb Hct MCV MCH MCHC RDW Plt Count MPV Immature Gran % (Auto) Neut % (Auto) Lymph % (Auto) Candler % (Auto) Eos % (Auto) Baso % (Auto) Lymph # (Auto) Candler # (Auto) Eos # (Auto) Baso # (Auto) Abs Immat Gran (auto) Absolute Neuts (auto) Absolute Nucleated RBC Nucleated RBC % (auto) Sodium Potassium Chloride Carbon Dioxide Anion Gap BUN Creatinine Estim Creat Clear Calc Estimated GFR Random Glucose Calcium Magnesium Total Bilirubin AST ALT Alkaline Phosphatase Troponin I High Sens Total Protein Albumin Beta HCG, Quant Blood Type A Positive Antibody Screen NEGATIVE Crossmatch See Detail Airway Mallampati Class: I TM Dist: >3cm Neck ROM: Full Loose/Missing/Broken Teeth: No Assessment and Plan Assessment Anesthesia Assessment: Anesthesia Plan Discussed and Chart Reviewed Final Anesthetic Review Family History of Problems with Anesthesia: No History of Problems with Anesthesia: No NPO: Yes ASA Class: I and Emergency Final Preanesthetic Review: No Changes in Pt Med Stat, Meds/Allgs Chart Reviewed, Consent Obtained/Reviewed and Anes Risks/Benef Reviewed Patient Risk: Intermediate Procedure Risk: Low Anesthetic Plan Anesthetic Plan: MAC: Disposition: Standard PACU
--- NOTE | 2022-05-16 17:10 | PM.OP ---
Brief Operative Note Date of Service: 05/16/22 Pre-op diagnosis: Retained products of conception Post-op diagnosis: same Procedure: Suction D&C under ultrasound guidance Surgeon: William Mayo MD Anesthesia: GLMA Was an Education Program Specialist used for this Procedure?: No Estimated blood loss (mL): 100 Pathology: other ( Retained Products of conception) Condition: stable Disposition: PACU
--- NOTE | 2022-05-16 17:11 | P.OP_ITS ---
Operative Note Operative Note Date of Service: 05/16/22 Narrative: Preop diagnosis: retained products of conception Operation: suction D and C Postop diagnosis: The same EBL: Minimal Anesthesia: GLMA Surgeon: William Mayo MD, FACOG Classifications Officer Cc/Cm: None Pathology: retained products of conception Procedure: The patient was put in a dorsal distal mid position was scrubbed and draped in the usual sterile fashion. A sterile speculum was inserted inside the patient's vagina the anterior lip of the cervix was grasped with single-tooth tenaculum the cervix was dilated up to 7 mm. Under ultrasonographic guidance flexible 7. Suction tip was introduced inside the patient ran cavity till the fundus was hit then turning the suction 360 degrees around products of conception was sucked out toward the uterine cavity. The suction tip was taken out of the patient uterine cavity sharp curettings was followed in 4 quadrants of the uterus till a gritty feeling was felt. The suction tip was reintroduced under ultrasonographic guidance and intrauterine blood was sucked. The suction tip was taken out. Single-tooth tenaculum was removed hemostasis assured using pressure. The patient tolerated the procedure well and was transferred to the PACU in a stable condition.
[2022-05-16 18:17] LABS: CT PCR NOT DETECTED (Not Detect.); NG PCR NOT DETECTED (Not Detect.)
--- NOTE | 2022-05-16 18:46 | PC.NURSE ---
350ML BLOOD INTAKE
== END 2022-05-16 19:05 | disposition home or self-care (01) ==
LOC: HO.ED 16:52 → HO.SSS 16:56
PROVIDERS: Physician Assistant Medical; Emergency Provider Emergency Medicine; Visit Provider Obstetrics & Gynecology
PROC: (CPT 59812; principal; 2022-05-16 16:30)
DX: O03.1 Delayed or excessive hemorrhage following incomplete spontaneous abortion (principal); R42 Dizziness and giddiness; D50.0 Iron deficiency anemia secondary to blood loss (chronic)
CPT/HCPCS: 59812; 36415; 36430; 71046; 76815; 76817; 80053; 83735; 84484; 84702; 85025; 86850; 86900; 86901; 86923; 87480; 87491; 87510; 87591; 87660; 88305; 93005; 99284; 99285; J0131; J1100; J2250; J2405; J2795; J3010; P9016

== ENCOUNTER 2022-05-17 12:33 | Outpatient (REF) | payer BC, SELFPAY ==
[2022-05-17 13:59] LABS: Hematocrit 26.3 % (37.0-47.0); Hemoglobin 8.3 g/dl (12.0-16.0); Mean Corpuscular HGB Conc 31.6 g/dl (31.0-35.0); Mean Corpuscular Hemoglobin 23.9 pg (27.0-33.0); Mean Corpuscular Volume 75.6 fL (80.0-98.0); Mean Platelet Volume 10.5 fL (9.4-12.3); NRBC Pct Auto 0.2 /100WBC (0.0-0.2); Platelet Count 461 X10*3/uL (160-400); Red Blood Count 3.48 X10*6/uL (4.20-5.50); Red Cell Distribution Width 19.5 % (11.0-16.0); White Blood Count 11.9 X10*3/uL (4.8-10.8)
== END 2022-05-17 12:34 | disposition home or self-care (01) ==
LOC: HO.LAB 12:33
PROVIDERS: Visit Provider Obstetrics & Gynecology
DX: D64.9 Anemia, unspecified (principal)
CPT/HCPCS: 36415; 85027

== ENCOUNTER → 2022-06-12 09:32 | Outpatient (BNVA) | payer BC, SELFPAY | PROVIDERS: Visit Provider Obstetrics & Gynecology | DX: Z30.017 Encounter for initial prescription of implantable subdermal contraceptive (principal) | CPT/HCPCS: 11981; 81025; J7307 ==

== ENCOUNTER 2023-05-19 10:12 | Emergency (ER) | payer BC, SELFPAY ==
[2023-05-19 10:58] VITALS: BP 126/80; PULSE 84; RESP 16; TEMP 36.6; O2SAT 99; BMI 19.9
== END 2023-05-19 13:35 | disposition left against medical advice (07) ==
PROVIDERS: Emergency Provider Emergency Medicine
DX: S71.151A Open bite, right thigh, initial encounter (principal); W54.0XXA Bitten by dog, initial encounter; Y93.9 Activity, unspecified; Y92.9 Unspecified place or not applicable; Y99.9 Unspecified external cause status
CPT/HCPCS: 99281

== ENCOUNTER 2024-03-18 16:45 | Outpatient (REF) | payer BC, SELFPAY ==
[2024-03-18 17:53] LABS: HCG Quantitative < 2 mIU/mL
== END 2024-03-18 16:46 | disposition home or self-care (01) ==
LOC: HO.LAB 16:45
PROVIDERS: Visit Provider Obstetrics & Gynecology
DX: Z32.01 Encounter for pregnancy test, result positive (principal)
CPT/HCPCS: 36415; 84702

== ENCOUNTER 2024-03-19 08:33 | Outpatient (AMB) | payer BC, SELFPAY ==
--- NOTE | 2024-03-19 08:44 | A.OFFVIS_ITS ---
Vital Signs 03/19/24 08:47 Height 5 ft 3 in Weight 110 lb 3.698 oz BMI 19.5 BP 110/62 Intake Visit Reasons: HCG follow up Teletype Or Varitype Keyboard Operator Required: No Information Interpreted: non-clinical & clinical Accompanied by: Self / Same As Patient Allergies BIRCH TREE Allergy (Unknown, Uncoded 03/19/24 08:47) Rash Is last menstrual period known: Yes Last menstrual period: 02/18/24 HPI Comments Details: The patient is presenting after a positive urine test done 2 days ago . The patient has Nexplanon over the last 2 years. No other complaints [facility] Medical History No known health problems Social History Patient Tobacco Use Status: Never used Tobacco Female Reproductive History Menstrual Date of last menstrual period: 02/18/24 Physical Exam Vital Signs: Last Vital Signs BP 110/62 03/19/24 08:47 BMI result Body Mass Index 19.5 Assessment & Plan Assessment & Plan (1) Positive test: Code(s): Z32.01 - Encounter for test, result positive Category: Medical Plan: HCG quantitative was less than 2. Discussed with the patient the results hCG, and that the urine test was falsely positive. All questions answered, the patient verbalized understanding Coding Level of Care Code Est Pt Level 3 (48410) Diagnoses Positive test Z32.01
[2024-03-19 08:47] VITALS: BP 110/62; BMI 19.5
== END 2024-03-19 08:59 | disposition home or self-care (01) ==
PROVIDERS: Visit Provider Obstetrics & Gynecology
DX: Z32.01 Encounter for pregnancy test, result positive (principal)
CPT/HCPCS: 99213

== ENCOUNTER → 2024-03-19 08:33 | Outpatient (BNVA) | payer BC, SELFPAY | PROVIDERS: Visit Provider Obstetrics & Gynecology ==